=== PATIENT | female | born 1960 | race Caucasian/White ===

== ENCOUNTER 2017-10-27 20:56 | Emergency (ER) | payer MEDICARE ==
[2017-10-27] MEDS ORDERED: HYOSCYAMINE SULFATE ODT 0.125 MG TAB.SUBL SL ONE (21:20)
--- NOTE | 2017-10-27 21:24 | Emergency Department Record ---
History of Present Illness - General Chief Complaint: Abdominal Pain Stated Complaint: DIARRHEA,NAUSEA AND BACK PAIN Time Seen by Provider: 10/27/17 20:58 Source: Patient Mode of Arrival: Ambulatory Limitations: No limitations - History of Present Illness Initial Comments: 57 yo female presents to ED for evaluation of nausea and mild, diffuse abdominal cramping symptoms for the past several days. Patient denies vomiting symptoms, does report watery stools as well. Patient denies fevers/chills or recent illness, does report history of fibromyalgia and OA. Patient also reports a history of Appendectomy and x 2 previously. MD Complaint: Abdominal pain Onset/Timin -: Days(s) Location: Diffuse Radiation: None Migration to: No migration Severity: Mild Quality: Cramping Consistency: Constant Improves With: Nothing Worsens With: Nothing Associated Symptoms: Diarrhea, Nausea - Related Data Home Medications Medication Instructions Recorded Confirmed Last Taken Bupropion HCl 75 mg PO DAILY 10/27/17 10/27/17 Unknown Hydrocodone/Acetaminophen [[place] 1 each PO BID 10/27/17 10/27/17 Unknown 7.5-325 Tablet] Allergies Allergy/AdvReac Type Severity Reaction Status Date / Time codeine AdvReac NAUSEA Verified 10/27/17 21:12 Review of Systems Constitutional: Denies: Chills, Fever, Malaise, Night sweats Eyes: Denies: Eye discharge, Eye pain ENT: Denies: Congestion, Ear pain, Epistaxis Respiratory: Denies: Cough, Dyspnea Cardiovascular: Denies: Chest pain, Dyspnea on exertion Endocrine: Denies: Fatigue, Heat or cold intolerance Gastrointestinal: Reports: Abdominal pain, Diarrhea, Nausea Genitourinary: Denies: Incontinence, Retention Musculoskeletal: Denies: Arthralgia, Back pain, Other Skin: Denies: Change in color Neurological: Denies: Abnormal gait, Confusion, Headache, Seizure Psychiatric: Denies: Anxiety Hematological/Lymphatic: Denies: Anemia, Blood Clots Physical Exam - General General Appearance: Alert, Oriented x3, Cooperative, No acute distress, Other ( Patient is noted to be standing while eating pizza in [place] just prior to examination) Limitations: No limitations - Head Head exam: Atraumatic, Normocephalic, Normal inspection Head exam detail: negative: Abrasion, Contusion, Sosa's sign, General tenderness, Hematoma, Laceration - Eye Eye exam: Normal appearance. negative: Conjunctival injection, Periorbital swelling, Periorbital tenderness, Scleral icterus - ENT Ear exam: negative: Auricular hematoma, Auricular trauma Nasal Exam: negative: Active bleeding, Discharge, Dried blood, Foreign body Mouth exam: negative: Drooling, Laceration, Muffled voice, Tongue elevation - Neck Neck exam: Normal inspection. negative: Meningismus, Tenderness - Respiratory Respiratory exam: Normal lung sounds bilaterally. negative: Rales, Respiratory distress, Rhonchi, Stridor - Cardiovascular Cardiovascular Exam: Regular rate, Normal rhythm, Normal heart sounds - GI/Abdominal GI/Abdominal exam: Soft, Tenderness (Mild, diffuse TTP without rebound, guarding , or peritoneal signs). negative: Rebound, Rigid - Rectal Rectal exam: Deferred - exam: Deferred - Extremities Extremities exam: Normal inspection. negative: Calf tenderness, Pedal edema, Tenderness - Back Back exam: Denies: CVA tenderness (R), CVA tenderness (L) - Neurological Neurological exam: Alert, Normal gait, Oriented X3 - Psychiatric Psychiatric exam: Normal affect, Normal mood - Skin Skin exam: Normal color. negative: Abrasion Type of lesion: negative: abrasion Course Vital Signs 10/27/17 21:10 Temperature 99.0 F Pulse Rate [ 98 H Pulse Ox Probe] Respiratory 14 Rate Blood Pressure 130/91 [Right Arm] Pulse Ox 97 - Reevaluation(s) Reevaluation #1: 10/27/17 22:14 Labs reviewed and are grossly unremarkable for an acute process. Patient was updated on all results, appears to resting comfortably. CT imaging does not appear indicated based on the laboratory results and patient's clinical examination. Will discharge home for further evaluation through her PCP. Medical Decision Making - Lab Data Result diagrams: 10/27/17 21:40 10/27/17 21:40 Disposition Disposition: Discharge Clinical Impression: Abdominal cramping Disposition: Home, Self-Care Condition: (2) Stable Instructions: Abdominal Pain (ED) Additional Instructions: Return to ED if your symptoms worsen or if you have any concerns. Follow-up with your family doctor in 3-5 days as directed. Forms: Patient Portal Access Time of Disposition: 22:17 Quality - Quality Measures Quality Measures: N/A - Blood Pressure Screening Does Patient Have Any of the Following: No, Active Dx of HTN Blood Pressure Classification: Hypertensive Reading Systolic Measurement: 130 Diastolic Measurement: 91 Screening for High Blood Pressure: < First Hypertensive BP, F/U Documented > [ [id number]] First Hypertensive Follow-up Interventions: Referral to alternative/primary care provider.
[2017-10-27] MEDS ORDERED: IBUPROFEN 600 MG TABLET PO ONE (21:41)
[2017-10-27 21:46] LABS: BASO % 0.6 % (0-6); EOS % 1.1 % (0-6); GRAN % 61.5 % (47-80); HEMATOCRIT 40.7 % (35.0-47.0); HEMOGLOBIN 13.7 gm/dl (11.6-16.0); LYMPH % 27.8 % (16-45); MEAN CELL VOLUME 89.6 fl (81-97); MEAN CORPUSCULAR HEMOGLOBIN 30.2 pg (27-33); MEAN CORPUSCULAR HGB CONC 33.7 g/dl (32-36); MEAN PLATELET VOLUME 8.2 fl (7.4-10.4); PLATELET COUNT 251 K/uL (130-400); RED BLOOD COUNT 4.54 M/uL (3.80-5.40); WHITE BLOOD COUNT W/O DIFF 7.2 K/uL (4.2-12.2)
[2017-10-27 21:47] LABS: URINE APPEARANCE CLEAR; URINE BILIRUBIN NEGATIVE (NEGATIVE); URINE BLOOD SMALL (NEGATIVE); URINE COLOR YELLOW; URINE GLUCOSE (UA) NEGATIVE (NEGATIVE); URINE KETONE NEGATIVE (NEGATIVE); URINE LEUKOCYTE ESTERASE NEGATIVE (NEGATIVE); URINE NITRITE NEGATIVE (NEGATIVE); URINE PROTEIN NEGATIVE (NEGATIVE); URINE UROBILINOGEN 0.2 E.U./dL (0.20 - 1.00)
[2017-10-27 21:55] LABS: URINE BACTERIA FEW; URINE SQUAMOUS EPITHELIAL CELL 0 - 2 /hpf; URINE WBC 0 - 2 (0-2/hpf)
[2017-10-27 22:01] LABS: BILIRUBIN,TOTAL < 0.20 mg/dL (0.2-1.0); BLOOD UREA NITROGEN 9 mg/dL (6-20); CREATININE 0.6 mg/dL (0.5-0.9); EST GLOMERULAR FILTRATION RATE > 60 mL/min
[2017-10-27 22:02] LABS: TOTAL PROTEIN 7.1 g/dL (6.6-8.7)
[2017-10-27 22:04] LABS: GLUCOSE,RANDOM 94 mg/dL (74-109)
[2017-10-27 22:07] LABS: ALB/GLOB RATIO 1.5 (1.1-1.8); ALBUMIN 4.3 g/dL (4.0-5.0); ALKALINE PHOSPHATASE 50 U/L (35-104); ALT/SGPT 23 U/L (<33); AST/SGOT 22 U/L (10.0-35.0); LIPASE 18 U/L (13-60)
== END 2017-10-27 22:34 | disposition home or self-care (01) ==
LOC: ER 20:56
DX: R10.9 Unspecified abdominal pain (principal); R19.7 Diarrhea, unspecified; R11.0 Nausea
CPT/HCPCS: 99283 ×2; 83690; 85025; 80053; 81001; J1980

== ENCOUNTER 2017-12-10 12:06 | Day surgery (SDC) | payer MEDICARE ==
[2017-12-10] MEDS ORDERED: LIDOCAINE 2% MDV (20MG/ML) 20ML VIAL IV ONE (12:07)
[2017-12-10] MEDS ORDERED: PROPOFOL 10 MG/ML VIAL IV ONE (12:07)
--- NOTE | 2017-12-11 12:50 | Operative Note ---
DATE OF SURGERY: 12/10/2017 OPERATION: COLONOSCOPY to the cecum with cold snare polypectomy and biopsy forceps polypectomy. INDICATION: Colorectal cancer screening. The patient did have a recent episode of diarrhea with abdominal pain. This is clinically improved. This is the patient's first colonoscopy. ANESTHESIA: Intravenous sedation was administered by the department of anesthesiology and included Diprivan titrated to effect. PROCEDURE: Following informed consent from this alert individual including a discussion of the risks and benefits of the procedure and an opportunity for the patient to ask questions, the patient was in the left lateral decubitus position. A digital rectal examination was performed. No abnormalities were noted. Following this, the Olympus [id number] video colonoscope was inserted into the rectum without resistance. The rectal mucosa had a normal appearance with normal folds and distensibility. The colonoscope was advanced up through the bowel to the level of the cecum without much difficulty. Throughout the bowel the mucosa appeared normal, the folds were normal, and the bowel was fairly well distensible. The cecum was defined by noting the appendiceal orifice and cecal pouch. In the cecum on a fold, there was an 8-10 mm sessile adenomatous appearing polyp noted which was removed in piecemeal fashion with cold snare polypectomy. Retroflexion in the cecum was endoscopically unremarkable. From the base of the cecum, the colonoscope was then withdrawn. No additional changes were appreciated until the rectum was reached. Within the rectum, there was a diminutive 3 mm polyp noted which was removed with biopsy forceps. No other abnormalities were noted. Retroflexion in the rectum was normal. Colon preparation was good. The patient tolerated the procedure well and was returned to the recovery area in stable condition. IMPRESSION: 1. An 8-10 mm sessile polyp along a fold in the cecum removed in piecemeal fashion with cold snare polypectomy. 2. A 3 mm distal rectal polyp removed with biopsy forceps. RECOMMENDATIONS: Further recommendations will be forthcoming pending results of pathology obtained today. Followup will also be with Max Wu DO. As always, thank you for allowing me to participate in the care of your patient. CC: Genoveva REGALADO
== END 2017-12-10 14:10 | disposition home or self-care (01) ==
LOC: HOP 12:06
PROVIDERS: ATTEND Internal Medicine Gastroenterology
DX: Z12.11 Encounter for screening for malignant neoplasm of colon (principal); D12.0 Benign neoplasm of cecum; K62.1 Rectal polyp; M79.7 Fibromyalgia